=== PATIENT | male | born 1990 | race Caucasian/White ===

== ENCOUNTER → 2023-05-14 | Outpatient (CLI) | payer OTHER ==
[2023-05-15 04:06] LABS: RUBELLA AB IGG-REFLAB 3.99 index (Immune >0.99); RUBEOLA (MEASLES) IGG 21.9 AU/mL (Immune >16.4)
[2023-05-15 05:08] LABS: MUMPS VIRUS IGG ANTIBODY 49.6 AU/mL (Immune >10.9)
== END | disposition home or self-care (01) ==
LOC: LABMN 11:00
PROVIDERS: ATTEND Internal Medicine
DX: Z02.1 Encounter for pre-employment examination (principal)
CPT/HCPCS: 86706; 86735; 86762; 86765; 86787

== ENCOUNTER 2023-12-19 09:00 | Emergency (ER) | payer SELFPAY ==
[~2023-12-19] VITALS: Ht 180.3 cm; Wt 104.5 kg
[2023-12-19 09:02] VITALS: BP 166/104; PULSE 59; RESP 18; TEMP 98.4
[2023-12-19] MEDS ORDERED: LOSA-382 PO (09:03)
== END 2023-12-19 10:34 | disposition home or self-care (01) ==
LOC: EMS 09:00
DX: S90.121A Contusion of right lesser toe(s) without damage to nail, initial encounter (principal); I10 Essential (primary) hypertension; Z98.890 Other specified postprocedural states; Z88.8 Allergy status to other drugs, medicaments and biological substances; W31.89XA Contact with other specified machinery, initial encounter; Y93.89 Activity, other specified; Y92.89 Other specified places as the place of occurrence of the external cause; Y99.0 Civilian activity done for income or pay
CPT/HCPCS: 99283